=== PATIENT | male | born 1995 | race Caucasian/White ===

== ENCOUNTER 2017-06-07 21:57 | Inpatient (IN) | payer BC, OTHER ==
[2017-06-07 22:52] LABS: Amphetamine Screen,Urine Not Detected (NotDetected); Barbiturate Screen,Urine Not Detected (NotDetected); Benzodiazepines Screen,Urine Not Detected (NotDetected); Cocaine Screen,Urine Not Detected (NotDetected); Methadone Screen, Urine Not Detected (NotDetected); Opiate Screen,Urine Not Detected (NotDetected); Oxycodone Screen, Urine Not Detected (NotDetected); Phencyclidine Screen,Urine Not Detected (NotDetected); Tricyclic Antidepressant,Urine Not Detected (NotDetected); Urn Cannabinoid Scrn Detected (NotDetected)
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
[2017-06-08 00:30] LABS: Appearance,Urine Clear (Clear); Bilirubin,Urine Negative (Negative); Blood,Urine Negative (Negative); Color,Urine Light Yellow; Glucose,Urine (UA) Negative (Negative); Ketones,Urine Negative (Negative); Leukocyte Esterase,Urine Negative (Negative); Nitrite,Urine Negative (Negative); PH, Urine 7.5 (5.0-8.0); Protein,Urine Negative (Negative); Specific Gravity,Urine 1.006 (1.001-1.035); Urobilinogen,Urine <2.0 mg/dL (<2.0)
[2017-06-08 00:56] LABS: Basophils % (A) 0 %; Eosinophils % (A) 0 %; HCT 43.7 % (39.0-53.0); HGB 16.1 gm/dL (13.0-17.5); Lymphocytes # (A) 1.2 k/uL (1.0-4.8); Lymphocytes % (A) 17 %; MCH 33.4 pg (25.0-35.0); MCHC 36.8 g/dL (31.0-37.0); MCV 90.9 fL (80.0-100.0); Mean Platelet Volume 7.7; Monocytes # (A) 0.3 k/uL (0-1.0); Monocytes % (A) 5 %; Neutrophils # (A) 5.4 k/uL (1.3-7.7); Neutrophils % (A) 76 %; Platelet Count 213 k/uL (150-450); RBC 4.81 m/uL (4.30-5.90); RDW 12.3 % (11.5-15.5)
[2017-06-08 01:08] LABS: ALT 32 U/L (21-72); AST 27 U/L (17-59); Albumin 4.6 g/dL (3.5-5.0); Alkaline Phosphatase 66 U/L (38-126); Anion Gap 13 mmol/L; Blood Urea Nitrogen 15 mg/dL (9-20); Calcium 9.6 mg/dL (8.4-10.2); Carbon Dioxide 27 mmol/L (22-30); Chloride 103 mmol/L (98-107); Glucose 112 mg/dL (74-99); Potassium 3.9 mmol/L (3.5-5.1); Sodium 143 mmol/L (137-145); Total Bilirubin 0.5 mg/dL (0.2-1.3); Total Protein 7.3 g/dL (6.3-8.2)
[2017-06-08] MEDS ORDERED: MAG HYDROX/AL HYDROX/SIMETH 30 ML CUP PO PRN (10:29)
[2017-06-08] MEDS ORDERED: MAGNESIUM HYDROXIDE 2,400 MG/10 ML CUP PO PRN (10:29)
[2017-06-08] MEDS ORDERED: ZIPRASIDONE 20 MG VIAL IM PRN (10:29)
[2017-06-08] MEDS ORDERED: LORazepam 1 MG TAB PO PRN (10:29)
[2017-06-08] MEDS ORDERED: LORazepam 2 MG/ML INJ IM PRN (10:34)
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
[2017-06-08 13:32] VITALS: BMI 21.2
[2017-06-08] MEDS ORDERED: ARIPiprazole 2 MG TAB PO STA (15:19)
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
[2017-06-08] MEDS: ACETAMINOPHEN TAB 325 MG TAB PO PRN (23:03)
[2017-06-09] MEDS ORDERED: ARIPiprazole 2 MG TAB PO SCH (09:00)
--- NOTE | 2017-06-09 10:23 | P.PN ---
Progress Note - Text Interval history: The patient is found in group he follows me to an interview room. He was admitted yesterday for acute symptoms of psychosis. The psychiatric evaluation note was reviewed as well as lab data and current medications. The patient continues to endorse a feeling of strangeness and continues to endorse delusional thought. He indicates he feels unsafe but can' t articulate why. He attributes meaning to the color red and feels cautious or unsafe when he sees it. He feels that people are changing around him. He reports that he has not been sleeping well because of work demands. He states prior to the hospitalization he had not been eating well. He reports sleeping last night and eating all 3 meals each day here. We discussed the Abilify that has been initiated and that the dose needs to be titrated. He describes some initial discomfort with taken the medicine but as we discussed it further he was more agreeable. His questions were answered regarding Abilify. Mental status exam: The patient is alert he is mildly disheveled hygiene is adequate. He is wearing eyeglasses. He is dressed in his own clothing he is carrying a Bible with him. He reports his mood is okay he endorses thoughts of paranoia and feeling unsafe. He describes other delusional thoughts. He is endorsing no auditory or visual hallucinations. Thought process for the most part is linear he is demonstrating no tangential thinking loose associations or flight of ideas. He does not appear hypomanic or manic. He demonstrates no abnormal involuntary movements he demonstrates no verbal or physical aggressiveness. He is pleasant and cooperative but maintains a constricted affect for most of the session. Plan: So far the etiology of the psychosis is unclear but I agree with initiating Abilify. We will titrate to 5 mg daily. I suggested that we titrate further but the patient is insisting that we are conservative with the dose. I discussed the indications for the medicine and the expected time it would take for to show benefit. The patient requires continued psychiatric hospitalization for his symptoms of psychosis. We will monitor him for safety and encourage his full participation in the milieu.
[2017-06-09] MEDS: ARIPiprazole 5 MG TAB PO SCH (10:59)
[2017-06-10] MEDS: ARIPiprazole 5 MG TAB PO SCH (08:23)
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
[2017-06-10] MEDS ORDERED: ARIPiprazole 5 MG TAB PO ONE (09:30)
[2017-06-11] MEDS: ARIPiprazole 10 MG TAB PO SCH (08:33)
--- NOTE | 2017-06-11 09:34 | P.PN ---
Progress Note - Text Interval history: The patient is found in the hallway he follows me to an interview room. He states that his mood is improving. He was able to sleep last night although it's difficult to sleep on a different schedule as he normally works midnight's. Appetite stable. He reports showering about every other day. He has been in communication with family via phone and hopes they will visit this evening. We discussed the Abilify his questions were answered. He states that he feels less suspicious he is less concerned with generalized stimuli. He is looking forward to being discharged to resume his work schedule and lists other responsibilities he needs to attend to. He has been attending groups. Mental status exam: The patient is alert he is mildly disheveled he is dressed in his own clothing hygiene is adequate. He is wearing eyeglasses. Eye contact is appropriate speech is fluent spontaneous nonpressured. He reports an improvement of his mood. He is endorsing no auditory or visual hallucinations. He is reporting no acute paranoid thinking. He is reporting no suicidal or homicidal ideation intent or plan. He demonstrates no abnormal involuntary movements he demonstrates no verbal or physical aggressiveness. He continues to be pleasant and cooperative during the session. He remains oriented to person place and date. Plan: The patient will continue on the Abilify 10 mg daily. I will confer with staff to see if they are observing improvement in the patient or if he is minimizing symptoms to facilitate a discharge. We will monitor him for safety he is encouraged to continue participating in the milieu. We will contact his family after the visit with him this evening to see if he is approximating his baseline.
[2017-06-11] MEDS: ACETAMINOPHEN TAB 325 MG TAB PO PRN (11:51)
[2017-06-12 07:17] VITALS: BP 130/78; PULSE 56; RESP 16; TEMP 98
[2017-06-12] MEDS: ARIPiprazole 10 MG TAB PO SCH (08:38)
--- NOTE | 2017-06-12 09:36 | P.DS ---
Providers Date of admission: 06/08/17 10:26 Expected date of discharge: 06/12/17 Attending physician: Raji Mccullough Consults: 06/08/17 10:29 Consult Physician Routine Consulting Provider: Javid Physician Consult Reason/Comments: H&P, with medical followup Do you want consulting provider notified?: Yes Primary care physician: Stated None - Discharge Diagnosis(es) (1) Psychosis Current Visit: Yes Status: Acute Priority: High Hospital Course: Brief summary of admission note: This patient is a 22-year-old single male who was admitted to the mental health unit through the emergency room for acute symptoms of psychosis. He comes to us from the [facility]. He described that his environment was weird and seemed to be changing. He was drawing inferences from generalized stimuli such as seeing the color red and assuming and had specific meaning for him. He conveyed a generalized sense of paranoia and possible persecution. For full details please refer to the psychiatric evaluation performed on 06/08/2017. Summary of hospital course: The patient was admitted to the mental health unit he did sign in voluntarily. He was initially evaluated over the weekend and I assumed his care this past Friday. I reviewed the psychiatric evaluation and other documentation. He had been started on Abilify 2 mg daily. After our conversation on Friday I determine that the Abilify needed to be increased. We titrated to 5 mg and then subsequently to 10 mg daily. The patient tolerated the Abilify and is describing no ongoing side effects from the medication. He was pleasant and cooperative during the hospitalization. He did endorse symptoms of psychosis as noted above but these seemed to resolve during the course of his stay. He demonstrated no agitated behavior he required no use of seclusion or restraint. He required no medication for agitation while under my care. Social work was in contact with the patient's family and they did visit him last evening. Social work notes were reviewed and his family reports feeling comfortable with him being discharged today. We discussed that he will need to discontinue use of alcohol and marijuana and he is agreeable. He does not feel he requires specialized inpatient treatment for substance use reasons. Mental status exam: The patient is alert he is a thin male appearing his stated age. He is dressed in his own clothing. Hygiene and grooming are good. He reports his mood is improved he is reporting no depressive symptoms he is endorsing no hopelessness thinking he endorses no suicidal or homicidal ideation intent or plan. He reports no auditory or visual hallucinations. He is endorsing no acute delusional thought content. There may be some residual form of his previous delusional thoughts but they are much improved. The patient is able to demonstrate appropriate attendance to his activities of daily living. He demonstrates no tangential thinking loose associations or flight of ideas. He does not appear hypomanic or manic. He demonstrates no verbal or physical aggressiveness and he demonstrates no abnormal involuntary movements. He remains oriented to person place and date. He demonstrates an appropriate range of affect and overall it appears euthymic at this time. Impressions 1. Psychosis unspecified, rule out primary psychotic etiology, rule out substance-induced psychosis, cannabis use disorder, rule out alcohol use disorder Plan: The patient will be discharged to the mental health unit today. He will continue on Abilify 10 mg daily. Social work will arrange outpatient mental health follow-up. The patient does have family members that are able and willing to provide support. He is encouraged to utilize their support as part of a transition plan from the mental health unit. Again he is instructed not to use any alcohol or marijuana and he is agreeable. At this time there is no imminent safety risk he is appropriate for transition to outpatient psychiatric care. He is instructed to return to any emergency room with any acute safety concerns. Patient Condition at Discharge: Stable Plan - Discharge Summary Discharge Rx Participant: No New Discharge Prescriptions: New ARIPiprazole [Abilify] 10 mg PO DAILY #30 tab Discharge Medication List ARIPiprazole [Abilify] 10 mg PO DAILY #30 tab 06/12/17 [Rx] Follow up Appointment(s)/Referral(s): None,Stated [Primary Care Provider] - 1-2 days
== END 2017-06-12 17:59 | disposition home or self-care (01) | DRG 885 ==
LOC: EC 21:57 → 3MHU 06-08 10:26
PROVIDERS: ADMIT Psychiatry & Neurology Psychiatry; ATTEND Psychiatry & Neurology Psychiatry
DX: F22 Delusional disorders (principal); F10.10 Alcohol abuse, uncomplicated; F12.90 Cannabis use, unspecified, uncomplicated; F17.210 Nicotine dependence, cigarettes, uncomplicated; F41.9 Anxiety disorder, unspecified; F90.9 Attention-deficit hyperactivity disorder, unspecified type; Z86.69 Personal history of other diseases of the nervous system and sense organs
CPT/HCPCS: 36415; 80053; 80306; 81003; 82075; 84443; 85025; 99285